=== PATIENT | male | born 1975 | race Two or more races ===

== ENCOUNTER 2024-12-14 12:49 | Emergency (ER) | payer MEDICAID ==
[~2024-12-14] VITALS: Ht 198.1 cm; Wt 123.0 kg
[2024-12-14 12:54] VITALS: O2SAT 99
[2024-12-14 13:44] LABS: HEMATOCRIT. 32.1 % (42.0-52.0); HEMOGLOBIN. 10.6 g/dL (14.0-18.0); MEAN PLATELET VOLUME 8.2 fl (7.4-10.4); PLATELET 385 x1000/uL (130-400); RED BLOOD CELL COUNT 3.29 mill/uL (4.7-6.1); RED CELL DISTRIBUTION WIDTH 13.6 % (11.6-14.6)
[2024-12-14 13:49] VITALS: BP 144/83; PULSE 110; RESP 15; TEMP 37.2; O2SAT 100
[2024-12-14 14:00] LABS: CREATININE 1.2 mg/dL (0.6-1.3)
[2024-12-14] MEDS: PIPERACILLIN/TAZO 3.375G/50ML 50 ML IV SCH (14:00)
[2024-12-14 14:01] LABS: UREA NITROGEN BLOOD 17 mg/dL (9-23)
[2024-12-14 14:02] LABS: ASPARTATE AMINOTRANSFERASE 29 IU/L (<34); BILIRUBIN DIRECT 0.4 mg/dL (<=3.0)
[2024-12-14 14:03] LABS: BILIRUBIN TOTAL 1.3 mg/dL (0.1-1.0); PROTEIN TOTAL 7.3 g/dL (6.0-8.3)
[2024-12-14 14:17] LABS: BAND% 1.0 % (1.0-6.0); EOSINOPHILS % MANUAL 1.0 % (0.0-5.0); LYMPHOCYTES % MANUAL 6.0 % (20.0-50.0); MONOCYTES % MANUAL 4.0 % (2.0-8.0); NEUTROPHILS % MANUAL 88.0 % (45.0-75.0); PLATELET ESTIMATE NORMAL
[2024-12-14] MEDS: KETOROLAC 15MG/ML VIAL IV ONE (14:32)
[2024-12-14] MEDS: SODIUM CHLORIDE 0.9% 1,000 ML IV ONE (14:32)
== END 2024-12-14 14:38 | disposition left against medical advice (07) ==
LOC: ER 12:49 → CMPBEDREQ 14:46
DX: E11.621 Type 2 diabetes mellitus with foot ulcer (principal); I10 Essential (primary) hypertension; I25.2 Old myocardial infarction; Z95.5 Presence of coronary angioplasty implant and graft
CPT/HCPCS: 99283; 80076; 80048; 83605; 85025; 85651; 87040; 36415; J7030